=== PATIENT | male | born 1955 | race Caucasian/White ===

== ENCOUNTER 2020-07-26 22:48 | Inpatient (IN) | payer MEDICARE, OTHER ==
[~2020-07-26] VITALS: Ht 182.9 cm; Wt 82.6 kg
[2020-07-26 23:46] LABS: BASOPHILS ABSOLUTE AUTO 0.12 K/mm3 (0.00-0.23); BASOPHILS PERCENT AUTO 1 % (0-2); EOSINOPHILS ABSOLUTE AUTO 0.18 K/mm3 (0.00-0.68); EOSINOPHILS PERCENT AUTO 2 % (0-6); Hematocrit 44.2 % (37.0-53.0); IMMATURE GRAN ABSOLUTE AUTO 0.02 K/mm3 (0.00-0.10); IMMATURE GRAN PERCENT AUTO 0 % (0-1); LYMPHOCYTES ABSOLUTE AUTO 4.63 K/mm3 (0.84-5.20); LYMPHOCYTES PERCENT AUTO 42 % (21-46); MONOCYTES ABSOLUTE AUTO 0.95 K/mm3 (0.16-1.47); MONOCYTES PERCENT AUTO 9 % (4-13); Mean Corpuscular HGB 28.7 pg (26.0-34.0); Mean Corpuscular HGB Conc 31.7 g/dL (31.5-36.5); Mean Corpuscular Volume 91 fL (80-100); Mean Platelet Volume 9.8 fL (9.1-12.4); NEUTROPHILS ABSOLUTE AUTO 5.08 K/mm3 (1.96-9.15); NEUTROPHILS PERCENT AUTO 46 % (41-73); Platelet Count 312 K/mm3 (150-400); RDW Coefficient Variation 16.9 % (11.7-14.2); RDW Standard Deviation 56.5 fL (35.1-46.3); Red Blood Cell Count 4.88 M/mm3 (4.30-5.90); White Blood Cell Count 10.98 K/mm3 (4.00-11.30)
[2020-07-26] MEDS ORDERED: FURO20 PO (23:56)
[2020-07-27 00:04] LABS: Alanine Aminotransfer (ALT/SGP 32 U/L (12-78); Albumin/Globulin Ratio 0.9 (0.8-1.8); Alk Phos 102 U/L (50-136); Anion Gap 9 mmol/L (6-16); Aspartate Aminotrans (AST/SGOT 36 U/L (12-37); Blood Urea Nitrogen 34 mg/dL (8-24); Bun/Creatinine Ratio 25.2 (12.0-20.0); CO2, Blood 23 mmol/L (21-32); Calcium, Blood 9.1 mg/dL (8.5-10.1); Chloride, Blood 104 mmol/L (98-108); Creatinine, Blood 1.35 mg/dL (0.60-1.20); Ethanol (Alcohol), Blood, Med <3 mg/dL; Globulin, Blood 4.7 g/dL (2.2-4.0); Glomerular Filtration Rate 56 (60-); Glucose, Blood 157 mg/dL (70-99); Magnesium, Blood 2.8 mg/dL (1.6-2.4); Potassium, Blood 3.7 mmol/L (3.5-5.5); Sodium, Blood 136 mmol/L (136-145); Total Protein, Blood 8.7 g/dL (6.4-8.2); Troponin I <0.015 ng/mL (0.000-0.040)
--- NOTE | 2020-07-27 03:16 | NUR ---
PT TO ICU 16 @ 0138 WITH ED RN, PT ALERT AND ORIENTED, HOWEVER PTS SPEECH IS SLURRED AND PT HAS FLIGHT OF IDEAS WITH PRESSURED SPEECH AT TIMES MAKING HIM DIFFICULT TO FOLLOW/UNDERSTAND. PT IRRITABLE BECOMING EASILY UPSET OVER DISCOMFORTS AND OTHER NURSING CARE, REPORTS STS BEING GENERALLY UPSET WITH HIS VISIT, UNHAPPY WITH IV STARTS, CARDIOVERSION, AND REFUSES IV POTASSIUM R/T PAIN, PT THEN GOES ON TO REPORT HE HAS NOT BEEN SLEEPING WELL AND HAS HAD A VERY POOR APPETITE, EATING VERY LITTLE THE PAST WEEK. PT DENIES EXCESSIVE ALCOHOL USE, REPORTS LAST USING METHAMPHETAMINE 07/26/20 @ APPROX 1500, PT REPORTS USING METH SO THAT HE IS ABLE TO PERFORM TASKS THAT NEED TO BE DONE, IT IS UNCLEAR WHAT THESE TASKS ARE BUT PT DOES STATE HE IS ABLE TO PERFORM ADL'S AND IADL'S WITHOUT ASSISTANCE. DIFFICULT TO OBTAIN A MEDICAL Hx AND MEDICATION RECONCILLIATION FROM PT OTHER THAN A HISTORY OF AFIB AND TAKING A MEDICATION FOR HIS BP ALONG WITH 4 OTHER PILLS, PT REPORTS BEING INCONSISTANT WITH TAKING HIS PILLS. O2 SATURATIONS> 90% ON 2L PER NC. MONITOR SHOWS SINUS RHYTHM WITH HR 60'S-70'S, BP STABLE, AMIO GTT INFUISNG. PT HAS NON PITTING EDEMA TO LOWER EXTREMETIES. PT DENIES GI/ ISSSUES OTHER THAN POOR APPETITE AND APPROX 10lb WEIGHT LOSS OVER THE LAST MONTH. PT MOVES ALL EXTREMETIES AND POSITIONS SELF INDEPENDENTLY IN BED. CALL PLACED TO DR STERN REGARDING IV POTASSIUM AND DIET. PT RECEIVED 14ml (APPROX 2.8mEq's) OF THE IV POTASSIUM. NEW ORDER FOR 40mEq PO KCL AND ADVANCE DIET TOLERATED.
[2020-07-27 03:18] LABS: U Amphetamine Screen DETECTED; U Barbituate Screen Not Detected; U Benzodiazapine Screen Not Detected; U Buprenorphine Screen Not Detected; U Cannabinoids Screen DETECTED; U Cocaine Screen Not Detected; U Methadone Screen Not Detected; U Methamphetamine Screen DETECTED; U Opiates Screen Not Detected; U Oxycodone Screen Not Detected; U Phencyclidine Screen Not Detected; U Propoxyphene Screen Not Detected
--- NOTE | 2020-07-27 06:32 | NUR ---
SHIFT SUMMARY NO ACUTE CHANGES THIS SHIFT, PT SLEPT FOR REMAINDER OF NIGHT, REMAINS ROUSABLE. MONITOR SHOWS SINUS RHYTHM, FEW PVC'S, HR AND BP STABLE. NO GI/ ISSUES THIS SHIFT, PT TOLERATING PO INTAKE.
[2020-07-27 07:37] LABS: BASOPHILS ABSOLUTE AUTO 0.08 K/mm3 (0.00-0.23); BASOPHILS PERCENT AUTO 1 % (0-2); EOSINOPHILS ABSOLUTE AUTO 0.11 K/mm3 (0.00-0.68); EOSINOPHILS PERCENT AUTO 2 % (0-6); Hematocrit 37.7 % (37.0-53.0); Hemoglobin 11.9 g/dL (13.5-17.5); IMMATURE GRAN ABSOLUTE AUTO 0.01 K/mm3 (0.00-0.10); IMMATURE GRAN PERCENT AUTO 0 % (0-1); LYMPHOCYTES ABSOLUTE AUTO 2.24 K/mm3 (0.84-5.20); LYMPHOCYTES PERCENT AUTO 30 % (21-46); MONOCYTES ABSOLUTE AUTO 0.67 K/mm3 (0.16-1.47); MONOCYTES PERCENT AUTO 9 % (4-13); Mean Corpuscular HGB 28.5 pg (26.0-34.0); Mean Corpuscular HGB Conc 31.6 g/dL (31.5-36.5); Mean Corpuscular Volume 90 fL (80-100); Mean Platelet Volume 9.9 fL (9.1-12.4); NEUTROPHILS ABSOLUTE AUTO 4.33 K/mm3 (1.96-9.15); NEUTROPHILS PERCENT AUTO 58 % (41-73); Platelet Count 217 K/mm3 (150-400); RDW Standard Deviation 56.4 fL (35.1-46.3); Red Blood Cell Count 4.17 M/mm3 (4.30-5.90); White Blood Cell Count 7.44 K/mm3 (4.00-11.30)
[2020-07-27 07:59] LABS: Alanine Aminotransfer (ALT/SGP 31 U/L (12-78); Albumin, Blood 3.5 g/dL (3.4-5.0); Albumin/Globulin Ratio 0.9 (0.8-1.8); Alk Phos 87 U/L (50-136); Anion Gap 6 mmol/L (6-16); Aspartate Aminotrans (AST/SGOT 34 U/L (12-37); Bilirubin, Total 0.6 mg/dL (0.1-1.0); Blood Urea Nitrogen 31 mg/dL (8-24); Bun/Creatinine Ratio 31.9 (12.0-20.0); CO2, Blood 21 mmol/L (21-32); CPK Creatine Kinase 82 U/L (39-308); Calcium, Blood 8.4 mg/dL (8.5-10.1); Chloride, Blood 109 mmol/L (98-108); Creatinine, Blood 0.97 mg/dL (0.60-1.20); Globulin, Blood 3.7 g/dL (2.2-4.0); Glomerular Filtration Rate >60 (60-); Glucose, Blood 107 mg/dL (70-99); Potassium, Blood 4.2 mmol/L (3.5-5.5); Sodium, Blood 136 mmol/L (136-145); Total Protein, Blood 7.2 g/dL (6.4-8.2); Troponin I <0.015 ng/mL (0.000-0.040)
--- NOTE | 2020-07-27 08:00 | NUR ---
INITIAL ASSESSMENT PATIENT ALERT AND ORIENTED X 4. PATIENT DOES HAVE FLIGHT OF IDEAS AT TIME. PATIENT CALM AND COOPERATIVE. PATIENT STATES THAT HE FEELS LIGHT HEADED AT TIMES. PATIENT SPEECH SLURRED/ GARBLED AND DIFFICULT TO UNDERSTAND AT TIMES. PATIENT HAS NO COMPLAINTS OF PAIN. PATIENT AFEBRILE. PATIENT DECREASED FROM 2 L NC TO RA AND REMAINS SATTING 90% AND GREATER. LUNGS CLEAR THROUGHOUT. PATIENT SOB WITH EXERTION. PATIENT IN SB TO SR, HR 50S TO 60S. SBP IN THE LOW 100S. + JVD NOTED. 2+ EDEMA NOTED TO BLES. ABDOMEN MODERATELY DISTENDED, SOFT, WITH NORMOACTIVE BS NOTED. LAST BM YESTERDAY. PATIENT ON REGULAR DIET. PATIENT VOIDING ROSEANNA COLORED URINE. PATIENT RECIEVING SCHEDULED LASIX. URINAL AT BEDSIDE. DRESSING C/D/I TO ABRASION ON LATERAL UPPER L ARM. SCATTERED SCABS, BRUISES AND ABRASIONS NOTED. BLES DISCOLORED. AMIODARONE INFUSING AT 0.5 MG/ MINUTE. BED LOW, CALL LIGHT IN REACH. WILL CONTINUE TO MONITOR PATIENT FREQUENTLY THROUGHOUT SHIFT.
--- NOTE | 2020-07-27 12:00 | NUR ---
PATIENT AFEBRILE. HR IN THE 60S. SBP IN THE 1-TEENS. NO ACUTE CHANGES TO NOTE ON AT THIS TIME. WILL CONTINUE TO MONITOR.
--- NOTE | 2020-07-27 16:32 | NUR ---
SBP LOW 100S TO 120S. NO OTHER ACUTE CHANGES TO NOTE ON AT THIS TIME. WILL CONTINUE TO MONITOR.
--- NOTE | 2020-07-27 19:24 | NUR ---
SHIFT SUMMARY PATIENT REMAINED ALERT AND ORIENTED X 4, AFEBRILE. PATIENT HAD NO COMPLAINTS OF PAIN. PATIENT REMAINED WITH SLURRED AND GARBLED SPEECH. PATIENT SATTED 90% AND GREATER ON RA. PATIENT STILL SOB WITH EXERTION. PATIENT IN SB TO SR, HR 50S TO 60S. SBP LOW 100S TO 130S. + JVD NOTED. NO BM THIS SHIFT. PATIENT HAD GOOD APPETITE. PATIENT HAD 675 MLS OF DARK YELLOW URINE OUT; URINAL. NO CHANGE TO SKIN THIS SHIFT. AMIODARONE REMAINS AT 0.5 MG/ MINUTE AND ORDERED TO STAY AT THIS RATE UNTIL FURTHER NOTICE BY DR. SOLORIO. ECHO PERFORMED THIS SHIFT. EF OF 19%. LOVENOX DC'D THIS SHIFT AND XARELTO STARTED. PATIENT REFUSED BED BATH. PATIENT WILL HAVE 2ND PORTION OF STRESS TEST TOMORROW. PATIENT HAS NO COMPLAINTS AT THIS TIME. BED LOW, CALL LIGHT IN REACH. REPORT GIVEN TO ASSUMING AUTOMATION TEST ENGINEER NURSE.
--- NOTE | 2020-07-27 21:00 | NUR ---
ASSUMPTION OF CARE PT ALERT AND ORIENTED x4 , SPEECH MUCH MORE CLEAR THAN PREVIOUS SHIFT, PT CALM AND COOPERATIVE. DENIES CP OR SOB, O2> 90% ON RA, MONITOR SHOWS SINUS RHYTHM WITH FEW PAC'S, HR 60'S-70'S, BP STABLE. AMIO GTT INFUSING @ 0.5mg/min. PT TOLERATING PO INTAKE, UNDERSTAND NPO STATUS AFTER MIDNIGHT. PT VOIDING INDEPENDENTLY IN URINAL AT BEDSIDE. REPOSITIONS SELF IN BED, CALL LIGHT WITIN REACH, PT USING APPROPRIATELY.
[2020-07-28 03:40] LABS: Hematocrit 35.8 % (37.0-53.0); Hemoglobin 11.4 g/dL (13.5-17.5); Mean Corpuscular HGB 28.6 pg (26.0-34.0); Mean Corpuscular HGB Conc 31.8 g/dL (31.5-36.5); Mean Corpuscular Volume 90 fL (80-100); Mean Platelet Volume 9.9 fL (9.1-12.4); Platelet Count 182 K/mm3 (150-400); RDW Coefficient Variation 17.2 % (11.7-14.2); RDW Standard Deviation 56.4 fL (35.1-46.3); Red Blood Cell Count 3.99 M/mm3 (4.30-5.90); White Blood Cell Count 6.62 K/mm3 (4.00-11.30)
[2020-07-28 04:00] LABS: Albumin, Blood 3.4 g/dL (3.4-5.0); Anion Gap 5 mmol/L (6-16); Blood Urea Nitrogen 28 mg/dL (8-24); Bun/Creatinine Ratio 27.5 (12.0-20.0); CO2, Blood 25 mmol/L (21-32); Calcium, Blood 8.5 mg/dL (8.5-10.1); Chloride, Blood 105 mmol/L (98-108); Creatinine, Blood 1.02 mg/dL (0.60-1.20); Glomerular Filtration Rate >60 (60-); Glucose, Blood 103 mg/dL (70-99); Magnesium, Blood 2.3 mg/dL (1.6-2.4); Phosphorus, Blood 3.6 mg/dL (2.5-4.9); Potassium, Blood 4.3 mmol/L (3.5-5.5); Sodium, Blood 135 mmol/L (136-145)
--- NOTE | 2020-07-28 06:13 | NUR ---
SHIFT SUMMARY NO ACUTE CHANGES THIS SHIFT, PT SLEPT THROUGH OUT NIGHT, REMAINS ON RA, MONITOR CONTINUES TO SHOW SINUS RHYTHM WITH FEW PVCS, HR AND BP STABLE. AMIO GTT INFUSING AT 0.5mg/min. NO GI/ ISSUES THIS SHIFT, PT NPO AFTER MIDNIGHT. CALL LIGHT WITHIN REACH, PT USING APPROPRIATELY.
--- NOTE | 2020-07-28 08:15 | NUR ---
INITIAL ASSESSMENT PATIENT WOKE EASILY TO VERBAL STIMULI THIS AM. PATIENT CALM AND COOPERATIVE. PATIENT ALERT AND ORIENTED X 4, AFEBRILE. SPEECH GARBLED AND VOICE HOARSE. PATIENT HAS NO COMPLAINTS OF PAIN THIS AM. SBA WHEN OOB. PATIENT SATTING 90% AND GREATER ON RA. LUNGS CLEAR IN ALL LOBES; DIMINISHED IN LOWER LOBES. PATIENT HAS SOB WITH EXERTION. PATIENT IN SR, HR IN THE 70S. SBP 1-TEENS TO 140S. 2+ EDEMA NOTED TO BLES. MODERATE ABD DISTENTION NOTED. ABD SOFT WITH NORMOACTIVE BS. PATIENT VOIDING ROSEANNA COLORED URINE INTO URINAL. PATIENT RECEIVING SCHEDULED LASIX AND SPIRINOLACTONE. DRESSING C/D/I TO ABRASION ON L LATERAL ARM. PATIENT HAS SCATTERED SCABS, BRUISES AND ABRASIONS. BLES DISCOLORED. AMIODARONE INFUSING AT 0.5 MG/ MINUTE. BED LOW, CALL LIGHT IN REACH. WILL CONTINUE TO MONITOR PATIENT FREQUENTLY THROUGHOUT SHIFT.
--- NOTE | 2020-07-28 09:10 | NUR ---
DR. SOLORIO HERE TO SEE PATIENT. UPDATED ON PATIENT STATUS. SHOWN 3 BEAT RUN OF VTACH THAT PATIENT HAD AT 0731. NO ORDERS RECEIVED AT THIS TIME.
--- NOTE | 2020-07-28 13:00 | NUR ---
PATIENT HAS TEMP OF 99.0 DEGREES FAHRENHEIT. HR 60S TO 70S. SBP IN THE 120S. NO OTHER ACUTE CHANGES TO NOTE ON AT THIS TIME. WILL CONTINUE TO MONITOR.
--- NOTE | 2020-07-28 14:54 | NUR ---
ATTEMPTED TO UPDATE PATIENT'S MED REC. PATIENT STATES HE TAKES 4 OR 5 PILLS BUT DOES NOT KNOW THE NAMES OF THEM. PATIENT STATES HE GETS ALL HIS PRESCRIPTIONS FILLED AT [facility] HERE [place]. [facility] CLOSED UNTIL WEDNESDAY. WILL INFOR CHILDREN'S PROGRAM COORDINATOR NURSE TO PASS ON SO THAT DAY SHIFT TOMORROW CAN CONTACT PHARMACY AND HAVE MED LIST FAXED OVER.
--- NOTE | 2020-07-28 18:39 | NUR ---
SHIFT SUMMARY PATIENT REMAINED CALM, COOPERATIVE AND PLEASANT. PATIENT REMAINED ALERT AND ORIENTED X 4. PATIENT HAD TMAX OF 99.0 DEGREES FAHRENHEIT. PATIENT HAD NO COMPLAINTS OF PAIN. PATIENT REMAINED SATTING 90% AND GREATER ON RA. PATIENT SLIGHTLY SOB AT TIMES. PATIENT REMAINED IN SR, HR 60S TO 70S. SBP 1-TEENS TO 140S. NO BM THIS SHIFT. PATIENT HAD GOOD APPETITE. PATIENT HAD OUT 2550 MLS OF URINE. NO CHANGE TO SKIN. PATIENT REMAINED REPOSITIONING SELF THROUGHOUT SHIFT. AMIODARONE DRIP DC'D AND PATIENT STARTED ON PO AMIO. PATIENT COMPLETED STRESS TEST THIS SHIFT. PATIENT REFUSED SHOWER. PATIENT APPEARS CONTENT AT THIS TIME. BED LOW, CALL LIGHT IN REACH. REPORT WILL BE GIVEN TO ONCOMING BUILDINGS PAINTER NURSE SHORTLY.
--- NOTE | 2020-07-28 19:00 | NUR ---
ASSUMED CARE NOTE: ASSUMED CARE OF PT AT 1900, RECEIVED REPORT FROM ALEJANDRO MCMULLEN. PT IS ALERT AND ORIENTEDX3, ABLE TO COMMUNICATE NEEDS. PT IS ON RA WITH SpO2 ABOVE 90%, NO RESP DISTRESS NOTED. PT DENIES ANY SOB/PAIN/NAUSEA AT THIS TIME. PT IS IN NSR WITH HR IN THE 60'S, BP STABLE. PT OUT OF BED TO THE CHAIR, SBA, PT UNABLE TO BEND LLE AT THE KNEE D/T FUSED KNEE. PT STS IT HAS BEEN THAT WAY FOR YEARS. BED CHANGED, DENTURES CLEANED, AND SOAKED. WILL CONTINUE TO MONITOR PT T/O SHIFT.
[2020-07-29 03:42] LABS: Hematocrit 40.7 % (37.0-53.0); Hemoglobin 13.5 g/dL (13.5-17.5); Mean Corpuscular HGB 29.2 pg (26.0-34.0); Mean Corpuscular HGB Conc 33.2 g/dL (31.5-36.5); Mean Corpuscular Volume 88 fL (80-100); Platelet Count 186 K/mm3 (150-400); RDW Coefficient Variation 17.1 % (11.7-14.2); Red Blood Cell Count 4.62 M/mm3 (4.30-5.90); White Blood Cell Count 6.91 K/mm3 (4.00-11.30)
[2020-07-29 03:57] LABS: Albumin, Blood 3.4 g/dL (3.4-5.0); Anion Gap 6 mmol/L (6-16); Blood Urea Nitrogen 18 mg/dL (8-24); Bun/Creatinine Ratio 21.8 (12.0-20.0); CO2, Blood 23 mmol/L (21-32); Calcium, Blood 8.9 mg/dL (8.5-10.1); Chloride, Blood 106 mmol/L (98-108); Creatinine, Blood 0.83 mg/dL (0.60-1.20); Glomerular Filtration Rate >60 (60-); Glucose, Blood 103 mg/dL (70-99); Magnesium, Blood 2.2 mg/dL (1.6-2.4); Phosphorus, Blood 3.7 mg/dL (2.5-4.9); Potassium, Blood 4.3 mmol/L (3.5-5.5); Sodium, Blood 135 mmol/L (136-145)
--- NOTE | 2020-07-29 06:11 | NUR ---
SHIFT SUMMARY: NO ACUTE CHANGES T/O SHIFT. PT SLEEPING T/O NIGHT. NO COMPLAINTS. PT HAS BEEN IN NSR WITH HR IN THE 70'S, BP STABLE. RA WITH SPO2 ABOVE 90% NO RESP DISTRESS. PT SALINED LOCKED. PT BEEN USING URINAL AT BEDSIDE, CLEAR YELLOW URINE NOTED. CALL LIGHT WITHIN REACH.
--- NOTE | 2020-07-29 08:30 | NUR ---
ASSESSMENT- PT AWAKENS EASILY. ATE BREAKFAST, GOOD APPETITE. DENIES PAIN OR SOB. NSR. BP STABLE. PLANS FOR LIFE VEST BEFORE DISCHARGE-REP CALLED, TRYING TO CLEAR INSURANCE. LUNGS CLEAR. ABRASION LEFT ARM DRESSING CHANGED.-STATES FROM FALL BEFORE HOSPITALIZATION. PIV INTACT. RIGHT GRANADOS WITH BROWN DISCOLORATION AND SMALL DRY SCAB. BILATERAL FEET SWELLING. ABLE TO USE CALL LIGHT. COOPERATIVE, A/O.
--- NOTE | 2020-07-29 12:21 | NUR ---
SLEEPING WITHOUT COMPLAINTS. GOOD APPETITE. NSR NO ECTOPY. BP STABLE.
--- NOTE | 2020-07-29 13:23 | NUR ---
MED REC- UNABLE TO COMPLETE, DOES NOT KNOW MEDICATIONS HE IS TAKING.
--- NOTE | 2020-07-29 14:27 | NUR ---
CALLED ANNE FROM [facility]-AWAITING INSURANCE APPROVAL AND PLANS TO FIT PT FOR [facility] TOMORROW BEFORE DISCHARGE. PT AGREEABLE.
--- NOTE | 2020-07-29 15:32 | NUR ---
PT FEBRILE. HAS BEEN SLEEPING WITHOUT COMPLAINTS. EATING SNACK NOW. DENIES PAIN OR SOB BUT STATES JUST FEELS "TIRED" AND "I HAVEN'T FELT WELL FOR SOME TIME NOW". DISCUSSED PLAN OF CARE, QUESTIONS ANSWERED. NSR. LUNGS CLEAR. NO DISTRESS
--- NOTE | 2020-07-29 17:21 | NUR ---
UP TO BEDSIDE COMMODE WITH STANDBY ASSIST, TOLERATED WELL. VSS. DENIES COMPLAINTS. NO ARRYTHMIAS, NSR
--- NOTE | 2020-07-29 18:48 | NUR ---
PT WITH GOOD APPETITE. DENIES PAIN OR DISCOMFORT, SLEEPING WHEN UNDISTURBED. TEMP NOW 98.8. CONTINUE TO MONITOR
--- NOTE | 2020-07-29 19:20 | NUR ---
ASSUMED CARE OF PT, HE IS NOTED TO APPEAR TO BE SLEEPING AT THIS TIME AND PER REPORT HAS BEEN FEELING TIRED TODAY, WILL FULLY ASSESS WHEN PT AWAKENS.
--- NOTE | 2020-07-29 20:25 | NUR ---
PT AWAKE AND REQUESTING SNACK AT THIS TIME. HE IS ALERT AND ORIENTED, SPEAKING IN FULL SENTENCES WITHOUT VISIBLE INCREASED WORK OF BREATHING, SATS ARE 96% ON ROOM AIR, LUNGS CLEAR THROUGHOUT, HE DENIES DYSPNEA/SOB AT THIS TIME. HRR, SINUS ON MONITOR, RATE 60S, PRESSURE MAINTAINING, SKIN PWD, BRISK CAP REFILL, FULL PULSES, EDEMA IMPROVED PER PT, HE DENIES CP/PRESSURE, DENIES DIZZINESS/VERTIGO, DENIES NUMBNESS/TINGLING. STATES THAT HE FEELS WELL ENOUGH FOR DISCHARGE BUT HAS TO WAIT FOR THE [facility] TO BE AVAILABLE. ACTIVE BOWEL TONES ARE NOTED, ABD SOFT, NO GRIMACING/GUARDING WITH LIGHT PALPATION. WILL MONITOR.
--- NOTE | 2020-07-30 06:07 | NUR ---
PT RESTS QUIETLY THROUGHOUT NOC. HE REMAINS PLEASANT AND COOPERATIVE WITH CARE. NO CHANGES TO ASSESSMENT THROUGHOUT SHIFT. PT HAS STATED THAT HE IS HOPEFUL TO HAVE L[facility] TODAY SO THAT HE CAN BE DISCHARGED TO HOME.
--- NOTE | 2020-07-30 06:40 | NUR ---
SPOKE WITH GROUP PROGRAM MANAGER FROM [employer] [facility], WILL BE HERE TO SEE PT AT 1530 TODAY
--- NOTE | 2020-07-30 13:21 | NUR ---
REASSESSMENT PT HAS BEEN RESTING IN BED FOR MOST OF THE MORNING. HE GOT UP AND TOOK A SHOWER. CONTINUES TO MAINTAIN SATS ABOVE 90% ON RA. SR, BP STABLE. VOIDING WITHOUT DIFFICULTY. AWAITING [facility] FITTING THIS AFTERNOON AROUND 1530. NO OTHER REQUESTS FROM PT. CONTINUING TO MONITOR.
[2020-07-30] MEDS ORDERED: AMIODARONE HCL400 M2 PO (16:21)
[2020-07-30] MEDS ORDERED: TORSE20 PO (16:21)
[2020-07-30] MEDS ORDERED: Amiodarone HCl200 MG PO (16:24)
[2020-07-30] MEDS ORDERED: METO25ER PO (16:24)
[2020-07-30] MEDS ORDERED: LOSA50 PO (16:24)
[2020-07-30] MEDS ORDERED: XARELTO20 MG PO (16:25)
[2020-07-30] MEDS ORDERED: ALDACTONE25 MG PO (16:25)
--- NOTE | 2020-07-30 16:27 | NUR ---
REP FROM [employer] WAS HERE TO GET PT SET UP, BUT WAS HAVING TROUBLE WITH THE EQUIPMENT SO HE IS HAVING A NEW ONE DRIVEN UP FROM [place]. PT WAS CONCERNED ABOUT GETTING TO GO HOME STILL SO SPOKE WITH DR. BANKS AND GOT PT'S DISCHARGE MED REC COMPLETE AND SENT TO HIS PHARMACY. PT STATED THAT HE DIDN'T HAVE ENOUGH MONEY FOR MORE MEDS BECAUSE HE JUST PICKED UP THIS MONTH'S MEDS. SPOKE WITH PT'S PHARMACY ABOUT WHICH MEDS PT WAS ALREADY ON AND HE WAS ALREADY ON LASIX, METOPROLOL, AND XARELTO. THEY SAID THAT THE AMIODARONE FOR PT WILL ONLY COST HIM 60 CENTS PER MONTH, BUT THEY WON'T HAVE IT UNTIL TOMORROW BECAUSE THEY NEED TO ORDER IT IN. INFORMED PT OF THIS AND HE WAS OK WITH THAT COST AND WILL GO TOMORROW TO AT LEAST ANIMAL CONTROL LICENSING WORKER THE AMIODARONE. SPOKE WITH DR. BANKS TO SEE IF HE WANTED TO TITRATE DOWN THE AMIODARONE AT ALL AND HE GAVE ORDERS TO REDUCE IT TO 200MG BID AFTER A WEEK, MED REC ADJUSTED. PT REMAINS SR, BP STABLE. CONTINUING TO MONITOR AND WAIT FOR LIF[facility] FITTING.
--- NOTE | 2020-07-30 18:36 | NUR ---
DISCHARGE PT DISCHARGED AT 1835 VIA FRIEND'S VEHICLE WITH [facility] ON AND WITH ALL THE EQUIPMENT FOR IT. DISCHARGE INSTRUCTIONS REVIEWED WITH PT REGARDING MEDICATIONS AND FOLLOW UP APPOINTMENTS. [facility] TO SCHEDULE FOLLOW UP APPOINTMENT WITH DR. SOLORIO. ALL BELONGINGS DC'D WITH PT.
== END 2020-07-30 18:40 | disposition home or self-care (01) | DRG 309 ==
LOC: ER 22:48 → ICUW 23:23
PROVIDERS: Emergency Medicine; Internal Medicine; ADMIT Internal Medicine
PROC: 5A2204Z Restoration of Cardiac Rhythm, Single (ICD-10-PCS; principal; 2020-07-26)
DX: I47.2 Ventricular tachycardia (principal); I50.22 Chronic systolic (congestive) heart failure; I42.7 Cardiomyopathy due to drug and external agent; I11.0 Hypertensive heart disease with heart failure; J44.9 Chronic obstructive pulmonary disease, unspecified; F31.9 Bipolar disorder, unspecified; I48.0 Paroxysmal atrial fibrillation; F15.10 Other stimulant abuse, uncomplicated; B19.20 Unspecified viral hepatitis C without hepatic coma; F17.210 Nicotine dependence, cigarettes, uncomplicated; I34.0 Nonrheumatic mitral (valve) insufficiency; I27.20 Pulmonary hypertension, unspecified; T43.625A Adverse effect of amphetamines, initial encounter; Z98.890 Other specified postprocedural states; Z79.01 Long term (current) use of anticoagulants
CPT/HCPCS: 36415; 70450; 70486; 71045; 71260; 72125; 74177; 78452; 80053; 80069; 82550; 83605; 83735; 83880; 84484; 85025; 85027; 92960; 93005; 93010; 93017; 93306; 96361-59; 96367; 96374-59; 96375-59; 99285-25; A9270; A9500; G0480; J0282; J1650; J2250; J2785; J3480; J7030; J7050; J7060; Q9967